=== PATIENT | female | born 1960 | race Caucasian/White ===

== ENCOUNTER → 2017-02-20 | Outpatient (CLI) | payer MEDICARE ==
[2016-07-26 07:30] VITALS: BP 155/82
[~2017-02-20] MED LIST: GABA-585 PO; HYDR-2161 PO; LEVO25TA4 PO; LISI1TAB3 PO
--- NOTE | 2017-02-20 11:54 | RAD ---
Abdominal ultrasound, 02/20/2017: History: Elevated liver function test The gallbladder is within normal limits in size. There is no sonographic evidence of cholelithiasis. The gallbladder lucia are not thickened. No bile duct dilatation is seen. The liver measures 19.8 cm in craniocaudad extent. It demonstrates generalized increased echogenicity most commonly due to fatty change. No hepatic mass is evident. Limited portions of the pancreatic body were visible and show no abnormality. Other portions of the pancreas were obscured by overlying bowel. The spleen measures 12 cm in craniocaudad extent. The left kidney demonstrates a mild bulge compatible with a dromedary hump. There is no evidence of renal obstruction. The abdominal aorta is of normal caliber. The inferior vena cava is unremarkable. IMPRESSION: 1. Hepatomegaly with increased hepatic echogenicity compatible with hepatic steatosis. 2. No gallbladder abnormality is detected.
== END | disposition home or self-care (01) ==
LOC: US 09:27
PROVIDERS: ATTEND Family Medicine
DX: K76.0 Fatty (change of) liver, not elsewhere classified (principal)
CPT/HCPCS: 76700

== ENCOUNTER → 2017-11-06 | Outpatient (CLI) | payer MEDICARE ==
[2016-07-26 07:30] VITALS: BP 155/82
--- NOTE | 2017-11-06 12:04 | RAD ---
Exam : Carotid Duplex with Grayscale Ultrasound and Spectral and Color Doppler Analysis: Clinical Indications: Carotid stenosis. Comparison study: None available. PQRS Compliance Statement - Stenosis calculations for CT, MR and conventional angiography are based upon measurement of the distal ICA diameter in accordance with the NASCET methodology. Stenosis calculations for carotid ultrasound studies are derived from validated velocity criteria which are known to correlate with the NASCET methodology. Findings: The common, internal and external carotid arteries were examined by grayscale, color and spectral Doppler ultrasound. Mild diffuse atherosclerotic vascular disease is seen. Mildly more prominent plaque is noted in the right carotid bulb. Flow in both vertebral arteries was antegrade and normal. The following are the velocities and ratios in the carotid arteries on both sides: RIGHT ICA PV: 140cm/sec RIGHT CCA PV: 126cm/sec RIGHT ICA ED: 38cm/sec RIGHT IC/CCPV: 1.1 RIGHT VERTEBRAL: antegrade flow LEFT ICA PV: 96cm/sec LEFT CCA PV: 89cm/sec LEFT ICA ED: 30cm/sec LEFT IC/CCPV: 1.1 LEFT VERTEBRAL: antegrade flow <50% ICA Stenosis: PSV < 125cm/s (EDV < 40cm/s; SVR < 2.0) 50-69% ICA Stenosis: PSV < 125-229cm/s (EDV 40-99cm/s; SVR 2.0-3.9) >70% ICA Stenosis: PSV > 230cm/s (EDV >100cm/s; SVR >4.0) Impression: Elevation of peak systolic velocity within the right internal carotid artery suggestive of a 50-69% stenosis. Consider further characterization with CTA.
== END | disposition home or self-care (01) ==
LOC: US 09:36
PROVIDERS: ATTEND Nurse Practitioner Family
DX: R09.89 Other specified symptoms and signs involving the circulatory and respiratory systems (principal); R42 Dizziness and giddiness; R53.1 Weakness; R53.81 Other malaise
CPT/HCPCS: 93880

== ENCOUNTER → 2017-12-18 | Outpatient (CLI) | payer MEDICARE ==
[2016-07-26 07:30] VITALS: BP 155/82
--- NOTE | 2017-12-18 15:36 | RAD ---
DATE: 12/18/2017 EXAM: MAMMO RO SCREENING BILATERAL HISTORY: Screening Mammogram COMPARISON: Screening mammogram 12/02/2013 This study was interpreted with the benefit of Computerized Aided Detection (CAD). The breast parenchyma shows scattered fibroglandular densities. Breast parenchyma level B. FINDINGS: Bilateral digital 2-D and 3-D tomosynthesis CC and MLO views. There are 2 circumscribed masses in the lateral left breast. There is an asymmetry seen in the superior right breast, anterior depth only seen on the MLO ro synthesis view, slice 17. Impression: 1. Two lateral left breast masses. Left breast ultrasound is recommended for further evaluation. 2. Asymmetry superior right breast, anterior depth, only seen on MLO view. Spot compression MLO and fall field ML view and same day ultrasound if needed. BI-RADS CATEGORY: 0 INCOMPLETE: NEEDS ADDITIONAL IMAGING EVALUATION AND/OR PRIOR MAMMOGRAMS FOR COMPARISON. RECOMMENDED FOLLOW-UP: ADD ADDITIONAL IMAGING PQRS compliance statement: Patient information was entered into a reminder system with a target due date for the next mammogram. Mammography is a sensitive method for finding small breast cancers, but it does not detect them all and is not a substitute for careful clinical examination. A negative mammogram does not negate a clinically suspicious finding and should not result in delay in biopsying a clinically suspicious abnormality. "Our facility is accredited by the [employer] Mammography Program."
== END | disposition home or self-care (01) ==
LOC: MAMMO 11:45
PROVIDERS: ATTEND Family Medicine
DX: Z12.31 Encounter for screening mammogram for malignant neoplasm of breast (principal); N63.20 Unspecified lump in the left breast, unspecified quadrant; N64.89 Other specified disorders of breast
CPT/HCPCS: 77063; 77067

== ENCOUNTER → 2017-12-25 | Outpatient (CLI) | payer MEDICARE ==
[2016-07-26 07:30] VITALS: BP 155/82
--- NOTE | 2017-12-25 14:24 | RAD ---
DATE: December 25, 2017 EXAM: DIGITAL DIAGNOSTIC RT, BREAST BILATERAL SONOGRAPHY HISTORY: Further evaluation of retroareolar nodule of the right breast and 2 lateral nodules seen on the left side on recent mammogram dated December 18, 2017. COMPARISON: Mammogram dated December 18, 2017. This study was interpreted with the benefit of Computerized Aided Detection (CAD). DIAGNOSTIC RIGHT BREAST MAMMOGRAPHY FINDINGS: Focal digital compression view of the retroareolar region of the right breast in the MLO projection and a digital 90 degree mediolateral view of the right breast were performed. Previously seen nodular density resolves with the additional views consistent with a benign finding. This will be confirmed sonographically. RIGHT BREAST SONOGRAPHY: High-resolution sonography of the retroareolar region of the right breast was performed. No focal sonographic abnormality is seen. LEFT BREAST SONOGRAPHY: High-resolution sonography of the lateral one half of the left breast was performed. At the 2:00 position, 2 cm from the nipple, a 10 mm cyst is seen. At the 3:00 position, 2 cm from the nipple, a 13 mm cyst is seen. At the 3:00 position, 2 cm and the nipple, a smaller 9 mm cyst is seen. This corresponds to the mammographic finding. IMPRESSION: Benign cysts of the left breast. Benign mammographic finding of the right breast. Recommend routine screening mammography in one year. BI-RADS CATEGORY: 2 BENIGN FINDING RECOMMENDED FOLLOW-UP: 12M 12 MONTH FOLLOW-UP PQRS compliance statement: Patient information was entered into a reminder system with a target due date December 19, 2018 for the next mammogram. Mammography is a sensitive method for finding small breast cancers, but it does not detect them all and is not a substitute for careful clinical examination. A negative mammogram does not negate a clinically suspicious finding and should not result in delay in biopsying a clinically suspicious abnormality. "Our facility is accredited by the [employer] Mammography Program."
== END | disposition home or self-care (01) ==
LOC: MAMMO 12:31
PROVIDERS: ATTEND Family Medicine
DX: N63.10 Unspecified lump in the right breast, unspecified quadrant (principal); N63.20 Unspecified lump in the left breast, unspecified quadrant
CPT/HCPCS: 76641; 77065

== ENCOUNTER → 2019-06-21 | Outpatient (CLI) | payer MEDICARE ==
[2016-07-26 07:30] VITALS: BP 155/82
--- NOTE | 2019-06-21 15:04 | RAD ---
DATE: 06/21/2019 10:00 AM EXAM: MAMMO RO SCREENING BILATERAL HISTORY: routine screening evaluation. COMPARISON: Prior mammographic imaging dating back to 12/18/2017 Bilateral CC and MLO views of the breasts were performed. Bilateral breast tomosynthesis was performed in CC and MLO projections. This study was interpreted with the benefit of Computerized Aided Detection (CAD). Breast Density: SCATTERED The breast parenchyma shows scattered fibroglandular densities. Breast parenchyma level B FINDINGS: Benign calcifications are present. The parenchymal pattern appears stable. No suspicious masses, microcalcifications or architectural distortion is present to suggest malignancy in either breast. The visualized axillae are unremarkable. IMPRESSION: No mammographic evidence of malignancy. BI-RADS CATEGORY: 2 BENIGN FINDING(S) RECOMMENDED FOLLOW-UP: 12M 12 MONTH FOLLOW-UP Annual screening mammography is recommended, unless clinically indicated sooner based on symptoms or change in physical exam. PQRS compliance statement: Patient information was entered into a reminder system with a target due date for the next mammogram. Mammography is a sensitive method for finding small breast cancers, but it does not detect them all and is not a substitute for careful clinical examination. A negative mammogram does not negate a clinically suspicious finding and should not result in delay in biopsying a clinically suspicious abnormality. "Our facility is accredited by the [employer] Mammography Program."
== END | disposition home or self-care (01) ==
LOC: MAMMO 09:37
PROVIDERS: ATTEND Family Medicine
DX: Z12.31 Encounter for screening mammogram for malignant neoplasm of breast (principal); N64.89 Other specified disorders of breast
CPT/HCPCS: 77063; 77067

== ENCOUNTER → 2020-06-22 | Outpatient (CLI) | payer MEDICARE ==
[2016-07-26 07:30] VITALS: BP 155/82
[~2020-06-22] MED LIST changes: +LISI1TAB23 PO; -LISI1TAB3 PO
--- NOTE | 2020-06-22 16:54 | RAD ---
DATE: 06/22/2020 9:55 AM EXAM: MAMMO RO SCREENING BILATERAL HISTORY: Screening COMPARISON: 12/02/2013, 06/21/2019, 12/18/2017 Bilateral CC and MLO views of the breasts were performed. Bilateral breast tomosynthesis was performed in CC and MLO projections. This study was interpreted with the benefit of Computerized Aided Detection (CAD). FINDINGS: Breast Density: HETERO The breast parenchyma Is heterogeneously dense, which could reduce sensitivity of mammography. Breast parenchyma level C Waxing and waning pattern of nodularity compatible with benign cystic change. No suspicious masses, microcalcifications or architectural distortion is present to suggest malignancy in either breast. The visualized axillae are unremarkable. IMPRESSION: No mammographic evidence of malignancy. BI-RADS CATEGORY: 2 BENIGN FINDING(S) RECOMMENDED FOLLOW-UP: 12M 12 MONTH FOLLOW-UP Annual screening mammography is recommended, unless clinically indicated sooner based on symptoms or change in physical exam. PQRS compliance statement: Patient information was entered into a reminder system with a target due date 06/23/2021 for the next mammogram. Mammography is a sensitive method for finding small breast cancers, but it does not detect them all and is not a substitute for careful clinical examination. A negative mammogram does not negate a clinically suspicious finding and should not result in delay in biopsying a clinically suspicious abnormality. "Our facility is accredited by the [employer] Mammography Program."
== END ==
LOC: MAMMO 09:46
PROVIDERS: ATTEND Family Medicine
DX: Z12.31 Encounter for screening mammogram for malignant neoplasm of breast (principal)
CPT/HCPCS: 77063; 77067